=== PATIENT | female | born 1995 | race Asian ===

== ENCOUNTER 2019-11-19 15:10 | Emergency (ER) | payer BC, OTHER ==
[~2019-11-19] VITALS: Ht 160 cm; Wt 57.9 kg
[~2019-11-19 15:10] MED LIST: FLUO20CA8; NAPR220T66; NORE-137
[2019-11-19] MEDS ORDERED: LIDOCAINE-MPF 1%, 5ML ONE (15:45)
[2019-11-19] MEDS ORDERED: DIPH,PERTUSS(ACELL),TET VAC/PF 0.5 ML IM-VACC ONE ×2 (16:00→16:22)
[2019-11-19] MEDS ORDERED: LIDOCAINE 1%, 10ML INFIL ONE (16:00)
[2019-11-19] MEDS ORDERED: HYDROcodone/APAP 5/325 TABLET PO ONE (17:30)
[2019-11-19] MEDS ORDERED: HYDROcodone/APAP 5/325 TABLET ONE (17:37)
[2019-11-19] MEDS ORDERED: NEOSPORIN OINT. PKT 1 PACKET ONE (17:39)
[2019-11-19 18:32] VITALS: BP 123/65
== END 2019-11-19 18:34 | disposition home or self-care (01) ==
LOC: ED 17:35
DX: S62.607A Fracture of unspecified phalanx of left little finger, initial encounter for closed fracture (principal); S61.215A Laceration without foreign body of left ring finger without damage to nail, initial encounter; W23.0XXA Caught, crushed, jammed, or pinched between moving objects, initial encounter; Y93.89 Activity, other specified; Y92.89 Other specified places as the place of occurrence of the external cause; Y99.8 Other external cause status
CPT/HCPCS: 12001; 73140; 90471; 90715; 99283; J3490